=== PATIENT | female | born 1950 | race Caucasian/White ===

== ENCOUNTER 2016-07-20 23:18 | Inpatient (IN) | payer MEDICARE, OTHER ==
[~2016-07-20] VITALS: Ht 165.1 cm; Wt 90.5 kg
[~2016-07-20 23:18] MED LIST: ALPR0.5T8 PO; CETI-263 PO; GUAI400T57 PO; OMEP20CA11 PO; PHEN10TA32 PO; SERT20OR6 PO
[2016-07-20 23:35] VITALS: BP 147/85; PULSE 122; RESP 24; O2SAT 89
[2016-07-21] VITALS (26 sets, daily range): BP systolic 113–143; BP diastolic 36–77; PULSE 95–107; RESP 15–24; O2SAT 89–100
--- NOTE | 2016-07-21 00:33 | ED.REPORT ---
HPI-Abd Pain F 40 and Over Date of Service Jul 21, 2016 ED Provider: Lui Polanco DO This patient is a 65 year old female with a history of hiatal hernia and GERD who presents to the ED complaining of RUQ abdominal pain and bloating that started 4 days ago. Pt. complains of nausea and dry heaving but denies cough or diarrhea. Patient reports muscular pain of her abdomen and back due to the frequency and severity of her dry heaving. Patient also reports shallow breathing due to pain with deep breath. She also states that she hasn't been able to keep fluids/food down. Patient states that typically when she has symptoms of this character she eats yogurt and blueberries to calm down her stomach. However, this did not work this time. She denies cough, chest pain, fever, chills, shortness of breath, or history of lung disease. She is an everyday smoker. Nursing Notes Stated Complaint: ABDOMINAL PAIN Chief Complaint: Female Abdominal Pain Nursing Notes Reviewed: Yes (RUQ) Allergies: Coded Allergies: TAPE (Unverified Allergy, Severe, BLISTERS, 09/07/14) buspirone (Unverified Allergy, Severe, RESP. DIFFICULTY, 09/07/14) penicillinase (Unverified Allergy, Unknown, UNKNOWN, 07/20/16) Scheduled Cetirizine HCl (Cetirizine HCl) 10 Mg Tablet 10 MG PO HS Omeprazole (Omeprazole) 20 Mg Capsule.dr 20 MG PO BID Phenylephrine HCl (Suphedrine PE) 10 Mg Tablet 10 MG PO DAILY Sertraline HCl (Sertraline) 20 Mg/1 Ml Oral.conc 50 MG PO DAILY Scheduled PRN Alprazolam (Alprazolam) 0.5 Mg Tablet 0.5 MG PO TID PRN PRN For Anxiety Guaifenesin (Guaifenesin) 400 Mg Tablet 400 MG PO Q4H PRN PRN PRN General Time Seen by MD: 00:32 Chief Complaint Abdominal pain Hx Obtained From: Patient Sudden in Onset?: No Onset Occurred: 4 days ago Symptom Duration: Since onset Location: : Abdomen upper: RUQ Severity: Current: Mild Severity: Maximum: Mild Pertinent Negative: Pt denies other symptoms Recent Healthcare: No recent doctor visit, No recent hospitalization Similar Sx Previous: No Past Medical History Past Medical History Anxiety Nasal BCC cancer Reports: GERD, Mental illness Past Surgical History Nasal BCC cancer Smoking History Current Every Day Smoker Social History Alcohol Use: "Social" Other Social History: Good social support, Local resident Ambulatory Status Independent Review of Systems + Bloating, Unable to keep fluids and food down, shallow breathing Constitutional: Denies: Chills, Fever Respiratory: Denies: Non-productive cough, Shortness of breath Cardiovascular: Denies: Chest pain GI: Reports: Abdominal pain (RUQ), Nausea, Denies: Diarrhea, Vomiting (dry heaving) Musculoskeletal: Reports: Myalgia (Specifically front and back torso, muscular strain) Complete sys rev & neg: except as marked. Physical Exam Vital Signs Vital Signs (First) Date Time Temp Pulse Resp B/P Pulse Ox O2 Delivery O2 Flow Rate FiO2 07/20/16 23:35 36.4 122 24 147/85 89 Room Air 07/21/16 00:00 3 Initial VS: Reviewed, Vital signs abnormal Head / Eyes: Atraumatic, Normocephalic, PERRL ENT: Conjunctiva normal, No scleral icterus Neck: Supple, Full range of motion Extremities: Vascular intact, Neuro intact Skin: Warm, Dry, No cyanosis Neurologic: Alert, Oriented, Nonfocal Psychiatric: Mood/affect normal, Behavior normal, Normal thought content General/Constitutional: Awake, Alert Appearance / Presentation: Positive: Obese Respiratory / Chest: Atraumatic Wheezing / Retractions: Positive: Wheezing mild shallow breathing Cardiovascular: Heart rate NL, Regular rhythm, No murmurs Abdomen: Atraumatic, Soft Tenderness/Guarding/Rebound: Positive: Tender RUQ... (Severe) Bowel Sounds / Distention: Positive: Distention mild Back: Atraumatic, Full range of motion Interpretation & Diagnostics Interpretation & Diagnostics: NEGATIVE FOR INFLUENZA TYPE A AND B Lab Results Interpretation Result Diagram: 07/21/16 0047 07/21/16 0047 Test 07/21/16 00:47 07/21/16 02:07 White Blood Count 13.8th/mm3 (3.8-10.1) Red Blood Count 5.11mil/mm3 (3.90-5.20) Hemoglobin 16.4g/dL (12.0-15.6) Hematocrit 45.7% (35.0-46.0) Mean Corpuscular Volume 89.4fL (81-100) Mean Corpuscular Hemoglobin 32.1pg (27.0-35.0) Mean Corpuscular Hemoglobin Concent 35.9% (32.0-37.0) Red Cell Distribution Width 13.5% (12.3-15.4) Platelet Count 245bil/L (150-400) Neutrophils (%) (Auto) 81.6% (40-74) Lymphocytes (%) (Auto) 6.5% (14-46) Monocytes (%) (Auto) 11.5% (4-12) Eosinophils (%) (Auto) 0.1% (0-5) Basophils (%) (Auto) 0.1% (0-3) D-Dimer 2.7mg/L (<0.50) Sodium Level 129mEq/L (134-144) Potassium Level 4.3mEq/L (3.5-5.2) Chloride Level 91mEq/L (97-108) Carbon Dioxide Level 20mmol/L (18-29) Blood Urea Nitrogen 21mg/dL (8-27) Creatinine 0.82mg/dL (0.57-1.00) Estimat Glomerular Filtration Rate 100mL/min (>59) Glucose Level 100mg/dL (60-99) Lactic Acid Level 0.9mmol/L (0.4-2.0) Calcium Level 9.4mg/dL (8.5-10.1) Magnesium Level 1.9mg/dL (1.6-2.6) Total Bilirubin 0.9mg/dL (0.0-1.2) Aspartate Amino Transf (AST/SGOT) 18U/L (0-50) Alanine Aminotransferase (ALT/SGPT) 8U/L (0-32) Alkaline Phosphatase 90U/L (25-165) Troponin T 0.010ug/L (0.0-0.011) Total Protein 7.5g/dL (6.4-8.4) Albumin 3.5g/dL (3.4-5.0) Lipase 20U/L (13-60) Urine Color Red (YELLOW) Urine Appearance Cloudy (CLEAR,HAZY) Urine pH 6.0 (5.0-8.0) Urine Specific Higden 1.025 (1.003-1.035) Urine Protein 30mg/dL (NEG,TRACE) Urine Glucose (UA) Negativemg/dL (NEGATIVE) Urine Ketones Tracemg/dL (NEGATIVE) Urine Occult Blood Negative (NEGATIVE) Urine Nitrite Positive (NEGATIVE) Urine Bilirubin Moderate (NEGATIVE) Urine Ictotest Positive (Negative) Urine Urobilinogen 2.0mg/dL (NORMAL) Urine Leukocyte Esterase Trace (NEGATIVE) Urine RBC 3-10/hpf (0-2) Urine WBC 0-5/hpf (0-5) Urine Epithelial Cells Moderate/hpf (NONE-MOD) Urine Crystals None seen (NONE SEEN) Urine Bacteria Moderate/hpf (NONE-FEW) Urine Hyaline Casts Occasional/lpf (NONE) Urine Granular Casts None seen (NONE SEEN) Urine Waxy Casts None seen (NONE SEEN) Urine Red Blood Cell Casts None seen (NONE SEEN) Urine White Blood Cell Casts None seen (NONE SEEN) Urine Mucus Present (None Seen) Urine Trichomonas None seen (NONE SEEN) Urine Yeast None (NONE SEEN) Urine Culture Reflexed Indicated Lab Results Interpretation: Elevated white blood count, normal transaminases. ECG Interpretation ECG Interpretation: Sinus tachycardia with a rate of 105 Time: 12:52 Interpreted by: ED physician CT Chest Interpretation CONCLUSION: NO evidence of pulmonary embolism. Patchy interstitial thickening, nonspecific. Cannot rule out pneumonia. Small hiatal hernia. Radiologist: Seda Wilkinson MD 07/21/2016 - 3:49:29 AM PST Study type: CT pulm angiogram Interpretation / Wet Read by: Interpret - Radiologist CT Abd / Pelvis Interpretation CONCLUSION: Severely distended gallbladder, gallstones, ductal dilatation and surrounding inflammation, compatible with acute cholecystitis. Possible adjacent abscess in the subcapsular region. Hepatic flexure colitis. Radiologist: Seda Wilkinson MD 07/21/2016 - 3:54:42 AM PST Interpretation / Wet Read by: Interpret - Radiologist Re-Eval/Medical Decision Med Decision/Clinical Course 65-year-old female presents in extremis. She is having severe pleuritic pain and right upper quadrant pain. She has been sick for 4 days. On examination she was tachycardic, tachypneic and had significant pleuritic pain associated with right upper quadrant tenderness. She was fluid resuscitated initially and her pain was treated. Diagnostics were ordered. Pulmonary emboli and aortic dissection were ruled out. She does however have severe acute cholecystitis with possible purulent extension into the subcapsular liver region. There are gallstones seen on the CT scan. She was treated with broad-spectrum antibiotics and IV fluids. She has been hemodynamically stable. Garrick Palomo our general surgeon has accepted her to his service. I was then informed by the nursing extrusion supervisor that we could not admit anyone else to our hospital at this time. I spoke with the surgeon retail security professional at [facility]. His recommendations are that we discuss this with nila Bowers because he feels that Mrs. Gan is going to need a percutaneous drainage and this is not something that [facility] is capable of doing. He did state that if were unable to find any place else for her or if the interventional radiologist not feel at this is indicated to call him back. We will recheck out to local facilities with interventional radiology capabilities. In the meantime we will treat her in the emergency department. [address] Juan Green: Arrangements were finalized with the hospitalist and surgeon at [facility] for patient's transfer there. They graciously accepted the patient in transfer. We then received a call back from the nursing extrusion supervisor that no beds would be available till after 0930 hours. This delay was deemed unacceptable considering her illness. Her case was again discussed with the nursing extrusion supervisor and Dr. Steele, the current surgeon retail security professional. He will evaluate her to take her to the operating room. A bed will be made available to receive her postoperatively. Source of Hx: Old records Re-Evaluation/Progress #1: Time of Eval: 04:07 Patient Status: Condition improved Re-Evaluation/Progress Note: Informed the patient of the results of her CT scan and labs. She will need to be admitted to the hospital for cholecystectomy. Patient understands and agrees with this plan. All questions were addressed. Re-Evaluation/Progress #2: Time of Eval: 04:28 Re-Evaluation/Progress Note: There is no bed at this facility for a patient with this acuity. Patient will need to be transferred to another hospital. Patient understands and agrees with this plan. Consultation #1: Referral / Consult Name: Garrick Palomo MD Consulted With: Surgeon Call Returned at: 04:06 Claim Agent: Will see patient, Agrees with eval, Agrees with plan, Accepts admit Note: Spoke with Dr. Palomo, surgeon, about the patient's CT scan result. He agrees to accept her for admit. Consultation #2: Consulted With: Surgeon Call Returned at: 04:29 Claim Agent: Agrees with eval, Agrees with plan Note: Spoke with the on-call surgeon at [facility]. He believes that the patient will need an IR team for this procedure. Likely, the patient will need a percutaneous drain. He is unable to accept admit at this time. Suggests Naldo Bowers. Consultation #3: Call Returned at: 04:50 Note: Spoke with [facility] transfer center. Transfer may be possible. Surgeon will call back later. Consultation #4: Consulted With: Surgeon Call Returned at: 05:00 Note: Spoke with Surgeon at [facility]. Will push images and call back. Counseled Regarding: Diagnosis, Lab results, Need for admission, Need for transfer Discharge & Departure Shift Change Sign-Out Patient Care Transferred: Yes Discussed Complaint(s): Yes Laboratory Evaluation: Lab evaluation discussed Imaging Studies: Imaging discussed Awaiting placement at hospital Primary Impression: Acute cholecystitis Additional Impression: UTI (urinary tract infection) Urinary tract infection type: acute cystitis Hematuria presence: without hematuria Qualified Code: N30.00 - Acute cystitis without hematuria Disposition: Transfer, Acute Care Facility Discharge Condition All VS Reviewed: Yes Condition: Stable Referrals: Thanh Clinton MD (PCP) Care Transferred to: Dr. Green Care Transferred at: 05:00 Jessica Attestation Portions of this note were transcribed by Dyan Talbert and Anita Yin I, Dr. Polanco personally performed the history, physical exam and medical decision-making ; I reviewed and confirmed the accuracy of the information in the transcribed note. Signed by: Dyan Talbert and Jessica Holcomb, 07/21/2016 and 0456. copies to: Thanh Clinton MD, Todd P DO Jul 21, 2016 00:33 Ying Talbert [Dyan] Jul 21, 2016 00:41 Anita Yin Jul 21, 2016 04:09 Juan Green MD Jul 21, 2016 06:53
[2016-07-21] MEDS ORDERED: 0.9% Sodium Chloride 1,000 ML IV ONE ×2 (00:39→05:00)
[2016-07-21] MEDS ORDERED: Albuterol-Ipratropium 3 mL Inhalation Solution NEB ONE (00:40)
[2016-07-21] MEDS ORDERED: Ondansetron 2 mg/mL 2 mL Inj IVPUSH PRN ×2 (00:40→12:30)
[2016-07-21] MEDS: HYDROmorphone 0.5 mg/0.5 mL iSecure Syringe IVPUSH PRN ×4 (01:00→09:22)
[2016-07-21 01:15] LABS: BASOPHILS % (AUTO) 0.1 % (0-3); EOSINOPHILS % (AUTO) 0.1 % (0-5); MONOCYTES % (AUTO) 11.5 % (4-12); Mean Corpuscular Hemoglobin 32.1 pg (27.0-35.0); Mean Corpuscular Volume 89.4 fL (81-100); NEUTROPHILS % (AUTO) 81.6 % (40-74); Platelet Count 245 bil/L (150-400)
[2016-07-21 01:47] LABS: Magnesium 1.9 mg/dL (1.6-2.6)
[2016-07-21 02:23] LABS: APPEARANCE,URINE CLOUDY (CLEAR,HAZY); COLOR,URINE RED (YELLOW); OCCULT BLOOD,URINE NEGATIVE (NEGATIVE)
[2016-07-21 02:24] LABS: ICTOTEST,URINE POSITIVE (Negative)
[2016-07-21] MEDS ORDERED: cefTRIAXone Inj 2,000 MG in IV Premix 1 EACH IV ONE (02:35)
[2016-07-21] MEDS ORDERED: metroNIDAZOLE Inj 500 MG in IV Premix 1 EACH IV ONE (03:55)
[2016-07-21] MEDS ORDERED: 0.9% Sodium Chloride 1,000 ML IV SCH (04:40)
[2016-07-21] MEDS ORDERED: Lactated Ringer's 1,000 ML IV ONE ×2 (07:13→15:20)
--- NOTE | 2016-07-21 07:50 | DRSVH ---
PROCEDURE: CT ANGIO CHEST PULMONARY EMBOLISM ([id number]) INDICATIONS: pleuritic chest pain, elevated dimer, abd pain TECHNIQUE: After the administration of intravenous contrast, 2 mm thick sections acquired from the pulmonary api sameer to the posterior costophrenic angles. 3-dimensional maximum intensity projection (MIP) coronal a nd sagittal reformats were then acquired through the thorax. For radiation dose reduction, the follo wing was used: automated exposure control, adjustment of mA and/or kV according to patient size. COMPARISON: [facility], CT, CT ABD PELVIS W CON, 07/21/2016, 3:23. FINDINGS: Image quality: Excellent. Pulmonary arteries: Pulmonary arteries are normal in size, and demonstrate no intraluminal filling d efects to suggest central pulmonary embolism. Lungs and pleura: There is a minimal scattered appearance of linear opacities predominantly within th e right lung. There is a wedge-shaped area of opacity in the anterior right middle lobe measuring farrah roximately 15 mm. Mediastinum: Heart size is normal, without pericardial effusion. No mediastinal or hilar adenopathy . Thoracic aorta is normal in caliber and enhancement. Esophagus is normal in caliber, with small h iatal hernia. Bones and chest wall: No suspicious bony lesions. Ribs and thoracic spine appear intact throughout. Thyroid gland is unremarkable. No axillary or supraclavicular adenopathy. Abdomen: Within the right kidney, there is a complex focus of predominantly low attenuation within t he superior pole. No remote priors are available for comparison. Otherwise, visualized upper abdomina l solid organs appear normal in the early arterial phase of enhancement. IMPRESSION: 1. Scattered areas of opacity within the right lung with most prominent in the right middle lobe. Whi le this could represent atelectasis, focal or developing airspace disease such as pneumonia cannot be definitively excluded. 2. No evidence of pulmonary embolism. 3. Complex focus within the right kidney without remote priors available for comparison. It is incomp letely visualized. Please see CT abdomen pelvis report of 07/21/16 for further details. Dictated by: Annie Lennon M.D. on 07/21/2016 at 7:49 Approved by: Annie Lennon M.D. on 07/21/2016 at 7:49
--- NOTE | 2016-07-21 08:04 | DRSVH ---
PROCEDURE: CT ABDOMEN AND PELVIS WITH CONTRAST ([id number]) INDICATIONS: pleuritic chest pain, elevated dimer, abd pain TECHNIQUE: After the administration of intravenous contrast, 5 mm thick sections acquired from the diaphragm to the symphysis. 5 mm coronal and sagittal reformats were acquired. For radiation dose reduction, the following was used: automated exposure control, adjustment of mA and/or kV according to patient siz e. COMPARISON: None. FINDINGS: Image quality: Excellent. ABDOMEN: Lung bases: Scattered areas of opacity are present probably within the right lung as well as a wedge- shaped area opacity within the right middle lobe. Solid organs: Gallbladder is significantly distended. The wall is markedly thickened with enhancemen t and surrounding pericystic cholecystic fluid and inflammatory change. Areas of calcification are no yuriy along the inferior aspect. Mild perihepatic fluid is also noted. In addition, there is a subcapsu lar fluid collection measuring approximately 20 x 30 x 40 mm. Mild intrahepatic ductal dilation is pr esent. The liver is overall mildly enlarged with steatosis. The spleen is unremarkable. Pancreas enhances normally. No adrenal nodules. Kidneys demonstrate nor mal size, without hydronephrosis. There is a complex focus of low attenuation in the right kidney. Peritoneum and bowel: Small loops demonstrate mild appearance of fluid filled prominence. Nodes and vessels: No retroperitoneal or mesenteric adenopathy by size criteria. Aorta and inferior vena cava are normal in size. Miscellaneous: No ventral hernias. PELVIS: Genitourinary: Bladder wall thickness is normal. Miscellaneous: No inguinal hernias or adenopathy. Bones: No suspicious bony lesions. No vertebral body compression fractures. IMPRESSION: 1. Significantly distended gallbladder with stones, wall thickening surrounding inflammation and pote ntial adjacent perihepatic abscess as described above. Findings are overall most consistent with chol elithiasis and acute cholecystitis. 2. Mild appearance of fluid filled small bowel prominence, which could be sales representative girls' apparel of ileus or developing partial small bowel obstruction. 3. 2 cm complex focus in the right kidney, indeterminate. This could represent a complex cyst or po tentially neoplasm. Additional evaluation with CT renal protocol or ultrasound is recommended for ev aluation. Dictated by: Annie Lennon M.D. on 07/21/2016 at 8:02 Approved by: Annie Lennon M.D. on 07/21/2016 at 8:02
--- NOTE | 2016-07-21 09:15 | NUR ---
STATUS UPDATE C/O ABD PAIN 09/08, TOLERABLE. SBA TO WASH HANDS AND RETURN TO BED R/T PAIN MEDICATIONS. CALL LIGHT WITHIN REACH.
[2016-07-21] MEDS ORDERED: fentaNYL-PF 50 mCg/mL 2 mL Inj ONE (10:07)
[2016-07-21] MEDS ORDERED: Ampicillin-Sulbactam Inj 3,000 MG in 0.9% Sodium Chloride 100 ML IV SCH (10:25)
[2016-07-21] MEDS ORDERED: metroNIDAZOLE Inj 500 MG in IV Premix 1 EACH IV SCH (10:30)
[2016-07-21] MEDS ORDERED: levoFLOXacin Inj 500 MG in IV Premix 1 EACH IV SCH (10:30)
--- NOTE | 2016-07-21 11:21 | NUR ---
REPORT FOR OR REPORT GIVEN TO KATJA WOODS IN OR. WILL BE COMING TO TRANSPORT TO OR VIA STRETCHER. FAMILY IN ROOM. ALL VERBALIZED UNDERSTANDING. VSS, SL, 1LO2 NC 94%.
[2016-07-21] MEDS ORDERED: Lidocaine PF 1% 30 mL Inj ONE (11:30)
[2016-07-21] MEDS ORDERED: Rocuronium 10 mg/mL 5 mL Inj ONE (11:30)
[2016-07-21] MEDS ORDERED: Ondansetron 2 mg/mL 2 mL Inj ONE (11:30)
[2016-07-21] MEDS ORDERED: Glycopyrrolate 0.2 mg/mL 5 mL Inj ONE (11:30)
[2016-07-21] MEDS ORDERED: Neostigmine 1 mg/mL 5 mL Inj ONE (11:30)
[2016-07-21] MEDS ORDERED: Dexamethasone 4 mg/mL Inj ONE (11:30)
[2016-07-21] MEDS ORDERED: MetoCLOpramide 5 mg/mL 2 mL Inj ONE (11:30)
[2016-07-21] MEDS ORDERED: Phenylephrine/NS-PF 100 mCg/mL 5 mL Syringe IVPUSH ONE (11:30)
[2016-07-21] MEDS ORDERED: EPHEDrine/NS 5 mg/mL 5 mL Syringe ONE (11:30)
[2016-07-21] MEDS ORDERED: Phenylephrine 10,000 mCg/mL Inj ONE (11:30)
[2016-07-21] MEDS ORDERED: Propofol 10,000 mCg/mL 20 mL Inj ONE (11:30)
[2016-07-21] MEDS ORDERED: Succinylcholine Chloride 20 mg/mL 5 mL Inj ONE (11:30)
--- NOTE | 2016-07-21 11:37 | NUR ---
TO OR INDEPENDENTLY TRANSF[place]ED [place]. ALL BELONGINGS TAKEN BY FAMILY WHO ARE AT BEDSIDE.
--- NOTE | 2016-07-21 11:53 | HP ---
[address] [address] HISTORY AND PHYSICAL PATIENT: GILMA MATIAS : 1950 MR#: [id number] ADMIT: 07/20/2016 JOB ID: [id number] CHIEF COMPLAINT: A 65-year-old lady with cholecystitis, seen in consultation at the request of Lui Polanco DO and Garrick Palomo MD. HISTORY OF PRESENT ILLNESS: The patient is a 65-year-old lady who has had longstanding abdominal symptoms including abdominal pain and bloating, which she attributed to her hiatal hernia. She has been on omeprazole mcfp and when she has one of these episodes, she generally goes to a liquids and yogurt diet. When she started having a similar attack four days ago that was on last Sunday, she tried the same thing without any relief. She also developed nausea, vomiting and severe dry heaving, and abdominal pain. Because of the pain she also was having trouble taking a deep breath. She was worked up in the emergency department with a CT pulmonary angiogram and abdomen and pelvis, and we were consulted with a diagnosis of acute cholecystitis. Since being in the emergency department, she got some antibiotics and some pain medication, and she is feeling a little better. She has no known obvious fevers. OTHER MEDICAL PROBLEMS: 1. Depression and anxiety. 2. Basal cell cancer on the nose. 3. Gastroesophageal reflux disease. 4. Obesity. PRIOR OPERATIONS: 1. Total abdominal hysterectomy. 2. Excision of basal cell carcinoma from the nose. HOME MEDICATIONS: 1. Cetirizine. 2. Omeprazole. 3. Suphedrine. 4. Sertraline. 5. Alprazolam. 6. Guaifenesin. ALLERGIES: 1. TAPE. 2. BUSPIRONE. 3. PENICILLIN. SOCIAL HISTORY: She has been smoking for the last 30 years, though she has not smoked in the last week, she says, because she has not been feeling very good. She is here with her son and [id number]. REVIEW OF SYSTEMS: Twelve-point review of systems negative other than the pertinent positives noted in the history of present illness and other medical problems. FAMILY HISTORY: No known family history of cancer. INVESTIGATIONS: Labs from July 21, 2016, WBC 13.8, platelet count 245, hemoglobin 16.4. Glucose 100, creatinine 0.8. Lactic acid is 0.9. Albumin 3.5. Troponin 0.01. CT pulmonary angiogram, scattered areas of opacity in the right lung. No evidence of pulmonary embolism. A CT abdomen and pelvis on July 21, 2016, distended gallbladder with stones, wall thickening and surrounding inflammation, with possible adjacent perihepatic abscess, a 2 cm complex cystic structure in the right kidney, for which CT renal protocol or ultrasound was recommended. PHYSICAL EXAMINATION: A 65-year-old lady, in no acute distress. BMI 33.4, pulse 95, temperature 36.4, blood pressure 113/36, saturating 93% on 2 L nasal cannula. Eyes: Normal pupils, conjunctivae. Ears, nose, and throat: Normal external appearance. Neck: No adenopathy or jugular venous distention. Respiratory: Bilateral air entry. Cardiovascular: Regular rate and rhythm. Gastrointestinal: Focally tender to palpation in the right upper quadrant. Musculoskeletal: Normal strength in extremities. Neurologic: No gross deficits. Psych: Alert, appropriate. Skin: Normal. ASSESSMENT AND PLAN: Acute cholecystitis. Discussed pathophysiology and treatment rationale, and recommended laparoscopic cholecystectomy with intraoperative cholangiogram. Discussed risks of the operation including, but not limited to, bile leak, bleeding, infection, conversion to open operation. We will admit her to the hospital on antibiotics and take her to the operating room as soon as the OR is available.
[2016-07-21] MEDS ORDERED: Bupivacaine-MPF 0.5% 30 mL Inj INFILTRATE ONE (12:00)
[2016-07-21] MEDS ORDERED: metroNIDAZOLE Inj 500 MG in IV Premix 1 EACH IV STA (12:26)
[2016-07-21] MEDS ORDERED: Lactated Ringer's 500 ML IV PRN (12:29)
[2016-07-21] MEDS ORDERED: Lactated Ringer's 1,000 ML IV SCH (12:29)
--- NOTE | 2016-07-21 12:29 | PCM.HPANE ---
Patient Data Surgeon Admitting Provider: Attending Provider: Primary Care Physician:Thanh Clinton MD Other Provider: Reason for Visit Abdominal Pain Ht/WT & BMI Height (Feet): 5 Height (Inches): 5 Weight (Kilograms): 90.91 Body Mass Index Allergies Coded Allergies: TAPE (Unverified Allergy, Severe, BLISTERS, 09/07/14) buspirone (Unverified Allergy, Severe, RESP. DIFFICULTY, 09/07/14) penicillinase (Unverified Allergy, Unknown, UNKNOWN, 07/20/16) Past Anesthesia History Anesthesia History: Denies:: Anesthesia Reactions, Malignant Hyperthermia Diabetes History Hx Diabetes?: No MRSA MRSA: No Medications Hypertension Medication: No Home Meds Incl Beta Karolyn: No Reported Medications Phenylephrine HCl (Suphedrine PE)10 Mg [id number] Mg PO DAILY 09/07/14 Sertraline HCl (Sertraline)20 Mg/1 Ml Oral.conc50 Mg PO DAILY #1 BOTTLE Ref 0 09/07/14 Omeprazole 20 Mg Capsule.dr20 Mg PO BID 30 Days Ref 0 09/07/14 Guaifenesin 400 Mg [id number] Mg PO Q4H PRN PRN 30 Days 09/07/14 Cetirizine HCl 10 Mg Pkktev99 Mg PO HS #30 TABLET Ref 0 09/07/14 Alprazolam 0.5 Mg Tablet0.5 Mg PO TID PRN For Anxiety 30 Days Ref 0 09/07/14 History History of ENT Problems?: Yes HEENT History: Positive for:: Sinus Problem (SEASONAL ALLERGIES) Hx of Heart Problems?: No Cardiovascular History: Denies:: Congestive Heart Failure Hypertension Hx of Respiratory Problem?: No Respiratory History: Denies:: Tuberculosis Use of C-PAP Machine Hx Neurologic Problems?: No Hx of GI Problems?: Yes Gastrointestinal History: Positive for:: Gall Bladder Disease Gastroesphageal Reflux Hx of Problems?: No Female Hx: Denies:: Currently Skin History: Positive for:: History Skin Disorders? (RT NASAL BASAL CELL CA= CURRENT PROBLEM) Denies:: Pressure Ulcers Hx Musculoskeletal Problems?: Yes Musculoskeletal History: Positive for:: Musculoskeletal Trauma (S/P TENDON RPR LT RING FINGER (FINGERS VS SKILSAW)) Hx of Psycho/Social Problems?: Yes Psycho Social History: Positive for:: Anxiety (PTSD W/ PANIC ATTACKS) Hx Surgeries?: Yes (LT RING FINGER TENDON RPR,HYST,TONSILS,WISDOM TEETH EXTRACTIONS) Hx Any Other Health Problems?: Yes Other History: Positive for:: Cancer (NASAL BCC) Thyroid Disease Denies:: Endocrine Disease Hospitalization History Blood Transfusions: Positive for:: Blood Transfusions Denies:: Blood Transfuse Reaction Hx Diabetes: No Hx Alcohol Use: Yes (2-3 weekly)Hx Substance Use: No Smoking Status: Current Every Day Smoker Have You Smoked inLast 12 mo: Yes Stop/Bang ANJUM Risk Assessment: High Risk, =/>3 Yes ANJUM Category 2: Yes Risk Assessment Category Category 1A: Patient has history of documented sleep apnea, and HAS NOT received any narcotic, sedative or anesthesia administration during this stay. Category 1B: Patient has history of documented sleep apnea, and HAS received any narcotic , sedative or anesthesia administration during this stay Category 2: Patient has SUSPECTED Obstructive Sleep Apnea, and HAS received any narcotic , sedative or anesthesia administration during this stay. Category 3: Patient has SUSPECTED Obstructive Sleep Apnea and HAS NOT received narcotic, sedative or anesthesia administration during this stay. Category 4: Outpatient in Procedural Areas with known sleep apnea or who screen positive for High Risk via the STOP/BANG questionnaire. Exam Exam Vital Signs Vital Signs Date Time Temp Pulse Resp B/P Pulse Ox O2 Delivery O2 Flow Rate FiO2 07/21/16 11:09 102 16 139/58 94 Room Air 07/21/16 07:31 95 113/36 93 Nasal Cannula 2 07/21/16 06:13 98 24 122/58 95 Nasal Cannula 2 07/21/16 04:20 96 20 118/53 95 Nasal Cannula 2 General Appearance: Alert, Oriented X3, Cooperative HEENT/AIRWAY: MP 2, Neck Movement (OK), Mouth Opening (Wide) Lungs: Clear to Auscultation, Normal Air Movement Heart: Regular Rate/Rhythm, Normal S1, Normal S2 Meds/Labs/Diagnostics Admission Meds Current Medications Sodium Chloride (Normal Saline) 1,000 ml @ 0 mls/hr Q0M ONCE IV Last administered on 07/21/16 01:00; Start 07/21/16 at 00:39; Stop 07/21/16 at 00:41 ; Status DC Albuterol/ Ipratropium 3 ml 3 ml ONCE ONCE NEB Last administered on 07/21/16 01:17; Start 07/21/16 at 00:40; Stop 07/21/16 at 00:42; Status DC Ceftriaxone Sodium/Dextrose 2000 mg/Premix 50 ml @ 100 mls/hr ONCE ONCE IV Last administered on 07/21/16 03:08; Start 07/21/16 at 02:35; Stop 07/21/16 at 03:04; Status DC Metronidazole/ Sodium Chloride 500 mg/Premix 100 ml @ 200 mls/hr ONCE ONCE IV Last administered on 07/21/16 04:18; Start 07/21/16 at 03:55; Stop 07/21/16 at 04:24; Status DC Sodium Chloride 1,000 ml @ 0 mls/hr Q0M IV Last administered on 07/21/16 04: 58; Start 07/21/16 at 04:40; Stop 07/21/16 at 10:29; Status DC Sodium Chloride 1,000 ml @ 0 mls/hr Q0M ONCE IV Last administered on 05:02; Start 07/21/16 at 05:00; Stop 07/21/16 at 05:01; Status DC Lactated Ringer's (Lr) 1,000 ml @ ud STK-MED ONCE IV Last administered on 07/21 07:33; Start 07/21/16 at 07:13; Stop 07/21/16 at 07:14; Status DC Labs Test 07/21/16 00:47 07/21/16 02:07 White Blood Count 13.8th/mm3 (3.8-10.1) Red Blood Count 5.11mil/mm3 (3.90-5.20) Hemoglobin 16.4g/dL (12.0-15.6) Hematocrit 45.7% (35.0-46.0) Mean Corpuscular Volume 89.4fL (81-100) Mean Corpuscular Hemoglobin 32.1pg (27.0-35.0) Mean Corpuscular Hemoglobin Concent 35.9% (32.0-37.0) Red Cell Distribution Width 13.5% (12.3-15.4) Platelet Count 245bil/L (150-400) Neutrophils (%) (Auto) 81.6% (40-74) Lymphocytes (%) (Auto) 6.5% (14-46) Monocytes (%) (Auto) 11.5% (4-12) Eosinophils (%) (Auto) 0.1% (0-5) Basophils (%) (Auto) 0.1% (0-3) D-Dimer 2.7mg/L (<0.50) Sodium Level 129mEq/L (134-144) Potassium Level 4.3mEq/L (3.5-5.2) Chloride Level 91mEq/L (97-108) Carbon Dioxide Level 20mmol/L (18-29) Blood Urea Nitrogen 21mg/dL (8-27) Creatinine 0.82mg/dL (0.57-1.00) Estimat Glomerular Filtration Rate 100mL/min (>59) Glucose Level 100mg/dL (60-99) Lactic Acid Level 0.9mmol/L (0.4-2.0) Calcium Level 9.4mg/dL (8.5-10.1) Magnesium Level 1.9mg/dL (1.6-2.6) Total Bilirubin 0.9mg/dL (0.0-1.2) Aspartate Amino Transf (AST/SGOT) 18U/L (0-50) Alanine Aminotransferase (ALT/SGPT) 8U/L (0-32) Alkaline Phosphatase 90U/L (25-165) Troponin T 0.010ug/L (0.0-0.011) Total Protein 7.5g/dL (6.4-8.4) Albumin 3.5g/dL (3.4-5.0) Lipase 20U/L (13-60) Urine Color Red (YELLOW) Urine Appearance Cloudy (CLEAR,HAZY) Urine pH 6.0 (5.0-8.0) Urine Specific Castor 1.025 (1.003-1.035) Urine Protein 30mg/dL (NEG,TRACE) Urine Glucose (UA) Negativemg/dL (NEGATIVE) Urine Ketones Tracemg/dL (NEGATIVE) Urine Occult Blood Negative (NEGATIVE) Urine Nitrite Positive (NEGATIVE) Urine Bilirubin Moderate (NEGATIVE) Urine Ictotest Positive (Negative) Urine Urobilinogen 2.0mg/dL (NORMAL) Urine Leukocyte Esterase Trace (NEGATIVE) Urine RBC 3-10/hpf (0-2) Urine WBC 0-5/hpf (0-5) Urine Epithelial Cells Moderate/hpf (NONE-MOD) Urine Crystals None seen (NONE SEEN) Urine Bacteria Moderate/hpf (NONE-FEW) Urine Hyaline Casts Occasional/lpf (NONE) Urine Granular Casts None seen (NONE SEEN) Urine Waxy Casts None seen (NONE SEEN) Urine Red Blood Cell Casts None seen (NONE SEEN) Urine White Blood Cell Casts None seen (NONE SEEN) Urine Mucus Present (None Seen) Urine Trichomonas None seen (NONE SEEN) Urine Yeast None (NONE SEEN) Urine Culture Reflexed Indicated Plan Impression Patient chart reviewed, patient interviewed and anesthestic plan with risks, benefits, and alternatives discussed, and informed consent obtained. NPO Status: > 8 hours ASA Physical Status: ASA2 Mod Systemic Disease Anesthetic Plan: GA Bene/Risks/Altern/Consents: Yes HP Complete Prior to Induction: Yes Malik Mi MD Jul 21, 2016 11:56
[2016-07-21] MEDS ORDERED: fentaNYL-PF 50 mCg/mL 2 mL Inj IVPUSH PRN (12:30)
[2016-07-21] MEDS ORDERED: EPHEDrine Sulfate 50 mg/mL Inj IVPUSH PRN (12:30)
[2016-07-21] MEDS ORDERED: MetoCLOpramide 5 mg/mL 2 mL Inj IVPUSH PRN (12:30)
[2016-07-21] MEDS ORDERED: Atropine 0.4 mg/mL Inj IVPUSH PRN (12:30)
[2016-07-21] MEDS ORDERED: Labetalol 5 mg/mL 4 mL Inj IV PRN (12:30)
[2016-07-21] MEDS ORDERED: Phenylephrine 10,000 mCg/mL Inj IVPUSH PRN (12:30)
[2016-07-21] MEDS ORDERED: Albuterol 2.5 mg/3 mL Inhalation Solution NEB PRN (12:30)
[2016-07-21] MEDS ORDERED: HYDROmorphone 1 mg/mL Inj IVPUSH PRN (12:30)
[2016-07-21] MEDS ORDERED: Dexamethasone 4 mg/mL Inj IVPUSH PRN (12:30)
[2016-07-21] MEDS ORDERED: hydrALAZINE 20 mg/mL Inj IVPUSH PRN (12:30)
--- NOTE | 2016-07-21 16:56 | DRSVH ---
PROCEDURE: X-RAY OPERATIVE CHOLANGIOGRAM ([id number]) INDICATIONS: SURGERY COMPARISON: [facility], CT, CT ABD PELVIS W CON, 07/21/2016, 3:23. FINDINGS: Biliary ducts: The surgeon injected contrast into the biliary ducts after cannulation of the cystic duct stump. Visualized intra- and extrahepatic bile ducts are normal in caliber, without strictures. No intraluminal filling defects to suggest retained ductal stones or sludge. No evidence for iatro genic ductal injury. Duodenum: Contrast flows promptly through the sphincter of Oddi into the duodenum, which appears nor mal in caliber. IMPRESSION: Normal operative cholangiogram. Dictated by: Messi Prince M.D. on 07/21/2016 at 16:54 Approved by: Messi Prince M.D. on 07/21/2016 at 16:54
--- NOTE | 2016-07-21 17:10 | PCM.SURGPO ---
Immediate Operative Note Date of Surgery: Jul 21, 2016 Pre Operative Diagnosis Cholecystitis Post Operative Diagnosis Gangrenous cholecystitis with Abscess Procedure Laparoscopic Cholecystectomy with intraop cholangiogram Surgeon and Food Service Technician Surgeon: Marija Steele MD Assistants: Libra Ordaz, PAC Findings Gallbladder gangrenous with duodenum and colon adherent to it. Pus in RUQ and Gallbladder. Cholangiogram showed no injury or filling defects Complications There were no periprocedural complications identified. Surgical Specimen Removed: Yes Specimen sent to Pathology: Yes Surgical Specimen description: Gallbladder & stones Anesthetic Administered: GA Grafts, Implants: None Output, Estimated Blood Loss: 150 Blood Admin during surgery: No Attending Statement The digital sales assistant listed was medically necessary for the completion of the case Marija Steele MD Jul 21, 2016 17:10
--- NOTE | 2016-07-21 17:19 | PCM.ANEP1 ---
Post Anesthesia Phase 1 PACU Phase 1 Assessment Date of Service: Jul 21, 2016 Vital Signs Vital Signs Date Time Temp Pulse Resp B/P Pulse Ox O2 Delivery O2 Flow Rate FiO2 07/21/16 17:10 36.7 100 15 127/58 100 Simple Mask 6 07/21/16 11:09 102 16 139/58 94 Room Air Anesthetic Administered: GA Level of Alertness: Sleepy, easy to arouse WOODARD's with Equal Strength: Yes Pain: No Nausea or Vomiting: No Airway Device: Oralpharangeal Airway Oxygen Delivery: Simple Mask Lungs: Normal Air Movement Malik Mi MD Jul 21, 2016 17:19
--- NOTE | 2016-07-21 17:31 | PCM.ANEP2 ---
Post Anesthesia Evaluation ASA/CMS Post Anesthesia Date of Service: Jul 21, 2016 VS in Patient's Normal Range?: Yes Resp Stable; Airway Patent?: Yes CV Function & Hydration Stable: Yes Mental Status Recovered?: Yes Pain control Satisfactory?: Yes N/V Control Satisfactory?: Yes Malik Mi MD Jul 21, 2016 17:31
--- NOTE | 2016-07-21 18:41 | OP ---
[address] [address] OPERATIVE REPORT PATIENT: GILMA MATIAS : 1950 MR#: [id number] ADMIT: 07/21/2016 JOB ID: [id number] DATE OF SURGERY: 07/21/2016 PREOPERATIVE DIAGNOSIS(ES): Acute cholecystitis. POSTOPERATIVE DIAGNOSIS(ES): Acute gangrenous cholecystitis with pus in the right upper quadrant. PROCEDURE PERFORMED: Laparoscopic cholecystectomy with intraoperative cholangiogram. SURGEON: Marija Steele MD ASSISTED: Tonia Ordaz PA-C ESTIMATED BLOOD LOSS: 150 mL. COMPLICATIONS: None. CONDITION OF THE PATIENT: Stable. ANESTHESIA: General endotracheal with local. INDICATIONS: The patient is a 65-year-old lady who has had intermittent upper abdominal discomfort for years which she attributed to her gastroesophageal reflux disease. At this time when she presented to the emergency department she has had upper abdominal pain and nausea and vomiting for almost five days, and she was hypoxic in the emergency department, prompting a CT pulmonary angiogram, CT abdomen and pelvis, and blood work. It showed no evidence of PE but severe cholecystitis with surrounding inflammation of the colon with a possible abscess. After discussing the risks, benefits, and alternatives, she was brought to the operating room for laparoscopic cholecystectomy with cholangiogram. PROCEDURE DETAILS: She was placed in supine position. Underwent smooth induction of general anesthesia. Abdomen was prepped and draped in the usual sterile fashion. Surgical time-out was undertaken using safety checklist, and all were in agreement. I began by making a 10 mm supraumbilical incision and entered the abdomen using open Markus technique. After obtaining pneumoperitoneum I noticed intense inflammation in the right upper quadrant with pus, with the gallbladder covered with adhesions. I placed a 5 mm port in the epigastric region and suctioned the pus and sent it for culture. I then bluntly dissected the stuck omentum away from the gallbladder. The colon also appeared to be adherent to the gallbladder, but this was mobilized away without any obvious injury to the colon. After the gallbladder was reasonably from the duodenum and the colon and the omentum, I placed 2 additional ports in the right upper quadrant. The gallbladder was then retracted cephalad and to the right, and again pus was seen coming out of the gallbladder and this was suctioned free. Because of the intense inflammation of the gallbladder, it was hard for me to dissect the triangle of Calot and I tried dissecting the gallbladder away from the liver bed and near the fundus. I did get into the gallbladder in the process and suctioned all the pus out. I then tried to develop a plane between the gallbladder and the liver bed near the fundus and after proceeding well for some extent I did get into some bleeding from the liver surface. This prompted me to put a Ray-Albert into the abdominal cavity and we used a clamp to hold pressure while we continued with the dissection. I attempted to dissect the infundibulum of the gallbladder free from the liver bed and here again I did get into some bleeding, arterial bleeding likely from the cystic artery. We placed another additional sponge injury into the abdomen to hold pressure while we placed an additional 5 mm port in the right upper quadrant to continue the dissection. I was able to dissect the gallbladder away from the liver bed, narrowing down to the cystic duct. At this point I encircled the gallbladder with an Endoloop and performed a cystic ductotomy, and attempted to perform a cholangiogram but was not successful. After that I completely transected the duct there and saw a large occluding stone which I removed and after that I obtained a cholangiogram showing no filling defects and no injury to the biliary structures. I then proceeded to control the cystic duct stump with an Endoloop. I up-sized the epigastric port to a 12 mm and removed the gallbladder and stones through this incision. All the sponges were also removed at that time, after making sure we had good hemostasis. I was able to identify the bleeding from the cystic artery, which I controlled with a hemoclip. I fulgurated the rest of the mucosa at the top of the gallbladder that was left intact on the liver bed and put a Surgicel Fibrillar for hemostasis on the liver bed. The right upper quadrant was thoroughly irrigated and suctioned free of any residual fluid. No obvious stones were left behind. I then brought a #19 DOMINGUEZ drain through the lateralmost 5 mm port and placed it in the gallbladder fossa. This was secured with a drain stitch and after that the ports were removed and the umbilical port fascia and the epigastric port fascia was closed with 0-Vicryl suture. The skin was reapproximated with 4-0 Monocryl. Steri-Strips and a sterile dressing were applied. The patient was recovered from anesthesia and was taken to the recovery room in stable condition. Addendum for modifier 22: Because of the intense inflammation in the right upper quadrant from severe gangrenous cholecystitis the operative duration was more then doubled, adding to the difficulty of the case. Because of this, requesting increasing reimbursement.
--- NOTE | 2016-07-21 19:59 | NUR ---
Post Op Patient arrived to floor via [place] at 1955. Patient was A&OX3. Report given by Roseanne HIGHTOWER. Vitals stable. Patient on 4L O2. 4 Lap sites appeared clean dry and intact.
--- NOTE | 2016-07-21 20:41 | PCM.CHPMED ---
Subjective Primary Physician: Admitting Physician: Garrick Palomo MD Primary Care Physician: Thanh Clinton MD Attending Physician: Garrick Palomo MD Chief Complaint: Chief Complaint: Admitting general surgeon requests evaluation of hypoxemia postop HISTORY was OBTAINED FROM PATIENT / MEDITECH NOTES History of present illness 65-year-old female, presented with 4 day history of right upper quadrant pain and bloating associated dry heaving. No fevers no chills shortness of breath no prior history of coronary disease ongoing smoker. In the ER, IVF, rocephine, then to OR for cholecystitis s/p unasyn and lapascopic cholecystectomy of gangrenous gallbladder/stone. Post op hypoxia. throat is sore, thirsty. abdominal pain controlled. post op levaquin/flagyl Review of Systems - none of the following - F/C/sick contact / wt change/ ZHANG / lightheaded / dizziness / cough / cp / diarrhea / bleeding/bruising / leg swelling / change in voiding / yeast infections / rash intermittent GERD FAMILY HX gallstones medications Cetirizine HCl (Cetirizine HCl) 10 Mg Tablet 10 MG PO HS Omeprazole (Omeprazole) 20 Mg Capsule.dr 20 MG PO BID Phenylephrine HCl (Suphedrine PE) 10 Mg Tablet 10 MG PO DAILY Sertraline HCl (Sertraline) 20 Mg/1 Ml Oral.conc 50 MG PO DAILY Scheduled PRN Alprazolam (Alprazolam) 0.5 Mg Tablet 0.5 MG PO TID PRN PRN For Anxiety Guaifenesin (Guaifenesin) 400 Mg Tablet 400 MG PO Q4H PRN PRN PRN Past Medical History Hysterectomy Anxiety Nasal BCC cancer Hiatal hernia GERD social History Current Every Day Smoker Alcohol Use: "Social" PMH Allergies: Coded Allergies: TAPE (Unverified Allergy, Severe, BLISTERS, 09/07/14) buspirone (Unverified Allergy, Severe, RESP. DIFFICULTY, 09/07/14) penicillinase (Unverified Allergy, Unknown, UNKNOWN, 07/20/16) Social History Hx Alcohol Use: Yes (2-3 weekly)Hx Substance Use: No Smoking Status: Current Every Day Smoker Exam Vital Signs Vital Sign - Last Date Time Temp Pulse Resp B/P Pulse Ox O2 Delivery O2 Flow Rate FiO2 07/21/16 20:06 36.6 104 18 120/77 91 Nasal Cannula 4.00 Intake and Output 07/20/16 07/20/16 07/21/16 Cumulative From/Thru 15:00 23:00 07:00 07/20/16 23:35 - 07/21/16 05:47 Intake Total 3000 ml 3000 ml Balance 3000 ml 3000 ml Intake IV Total 3000 ml 3000 ml Lab and Diagnostics Labs Exam on admission 3L NC NAD A and O x 3 mood affect WNL NC/AT no icterus no injected eyes EOMI PERRL /erythematous pharyngeal tissue/ no oral lesions / hearing intact Supple neck CTAB equal chest rise / no accessory muscle use / speaks in full sentences / no rrw RRR S1 S2 / no mrg / 2+ radial pulses Soft nt mild distention hypoactive no hepatosplenomegaly No edema no cyanosis no ecchymosis of lower extremities No rash / no jaundice WOODARD ua nitrite positive bacteria PROCEDURE: CT ANGIO CHEST PULMONARY EMBOLISM ([id number]) INDICATIONS: pleuritic chest pain, elevated dimer, abd pain TECHNIQUE: After the administration of intravenous contrast, 2 mm thick sections acquired from the pulmonary apices to the posterior costophrenic angles. 3-dimensional maximum intensity projection (MIP) coronal and sagittal reformats were then acquired through the thorax. For radiation dose reduction, the following was used: automated exposure control, adjustment of mA and/or kV according to patient size. COMPARISON: [facility], CT, CT ABD PELVIS W CON, 07/21/2016, 3:23. FINDINGS: Image quality: Excellent. Pulmonary arteries: Pulmonary arteries are normal in size, and demonstrate no intraluminal filling defects to suggest central pulmonary embolism. Lungs and pleura: There is a minimal scattered appearance of linear opacities predominantly within the right lung. There is a wedge-shaped area of opacity in the anterior right middle lobe measuring approximately 15 mm. Mediastinum: Heart size is normal, without pericardial effusion. No mediastinal or hilar adenopathy. Thoracic aorta is normal in caliber and enhancement. Esophagus is normal in caliber, with small hiatal hernia. Bones and chest wall: No suspicious bony lesions. Ribs and thoracic spine appear intact throughout. Thyroid gland is unremarkable. No axillary or supraclavicular adenopathy. Abdomen: Within the right kidney, there is a complex focus of predominantly low attenuation within the superior pole. No remote priors are available for comparison. Otherwise, visualized upper abdominal solid organs appear normal in the early arterial phase of enhancement. IMPRESSION: 1. Scattered areas of opacity within the right lung with most prominent in the right middle lobe. While this could represent atelectasis, focal or developing airspace disease such as pneumonia cannot be definitively excluded. 2. No evidence of pulmonary embolism. 3. Complex focus within the right kidney without remote priors available for comparison. It is incompletely visualized. Please see CT abdomen pelvis report of 07/21/16 for further details. PROCEDURE: CT ABDOMEN AND PELVIS WITH CONTRAST ([id number]) INDICATIONS: pleuritic chest pain, elevated dimer, abd pain TECHNIQUE: After the administration of intravenous contrast, 5 mm thick sections acquired from the diaphragm to the symphysis. 5 mm coronal and sagittal reformats were acquired. For radiation dose reduction, the following was used: automated exposure control, adjustment of mA and/or kV according to patient size. COMPARISON: None. FINDINGS: Image quality: Excellent. ABDOMEN: Lung bases: Scattered areas of opacity are present probably within the right lung as well as a wedge-shaped area opacity within the right middle lobe. Solid organs: Gallbladder is significantly distended. The wall is markedly thickened with enhancement and surrounding pericystic cholecystic fluid and inflammatory change. Areas of calcification are noted along the inferior aspect. Mild perihepatic fluid is also noted. In addition, there is a subcapsular fluid collection measuring approximately 20 x 30 x 40 mm. Mild intrahepatic ductal dilation is present. The liver is overall mildly enlarged with steatosis. The spleen is unremarkable. Pancreas enhances normally. No adrenal nodules. Kidneys demonstrate normal size, without hydronephrosis. There is a complex focus of low attenuation in the right kidney. Peritoneum and bowel: Small loops demonstrate mild appearance of fluid filled prominence. Nodes and vessels: No retroperitoneal or mesenteric adenopathy by size criteria. Aorta and inferior vena cava are normal in size. Miscellaneous: No ventral hernias. PELVIS: Genitourinary: Bladder wall thickness is normal. Miscellaneous: No inguinal hernias or adenopathy. Bones: No suspicious bony lesions. No vertebral body compression fractures. IMPRESSION: 1. Significantly distended gallbladder with stones, wall thickening surrounding inflammation and potential adjacent perihepatic abscess as described above. Findings are overall most consistent with cholelithiasis and acute cholecystitis. 2. Mild appearance of fluid filled small bowel prominence, which could be insurance account representative of ileus or developing partial small bowel obstruction. 3. 2 cm complex focus in the right kidney, indeterminate. This could represent a complex cyst or potentially neoplasm. Additional evaluation with CT renal protocol or ultrasound is recommended for evaluation. Result Diagram: 07/21/16153707/21/16 0047 Assessment & Plan Assessment Active issues and reason for admission Hypoxia due to aspiration pneumonitis, contributory smoking history and atelectasis due to cholecystitis pain POD0 laparoscopic cholecystectomy -- Pending BNP, sputum culture, DuoNeb's 4 times a day, already on Levaquin and Flagyl -- Incentive spirometer Cholecystectomy due to cholecystitis/gallstones, associated leukocytosis -- Levaquin Flagyl, DOMINGUEZ drain per general surgeon --pain control per her surgeon Hyponatremia due to dehydration -- Status post normal saline IV fluid Chronic issues known prior to admission, present on admission Anxiety / smoker Hiatal hernia GERD --- Famotidine IV, narcotics, consider lorazepam, prn nicotine patch Diet per surgeon DVT prophylaxis scd ambulate Assessment and plan were discussed with patient family. Problems: Lillie Kurtz MD Jul 21, 2016 20:41 Diet per surgeon DVT prophylaxis scd ambulate Assessment and plan were discussed with patient family. Hysterectomy Anxiety Nasal BCC cancer Hiatal hernia GERD PMH Allergies: Coded Allergies: TAPE (Unverified Allergy, Severe, BLISTERS, 09/07/14) buspirone (Unverified Allergy, Severe, RESP. DIFFICULTY, 09/07/14) penicillinase (Unverified Allergy, Unknown, UNKNOWN, 07/20/16) Social History Hx Alcohol Use: Yes (2-3 weekly)Hx Substance Use: No Smoking Status: Current Every Day Smoker Exam Vital Signs Vital Sign - Last Date Time Temp Pulse Resp B/P Pulse Ox O2 Delivery O2 Flow Rate FiO2 07/21/16 20:06 36.6 104 18 120/77 91 Nasal Cannula 4.00 Intake and Output 07/20/16 07/20/16 07/21/16 Cumulative From/Thru 15:00 23:00 07:00 07/20/16 23:35 - 07/21/16 05:47 Intake Total 3000 ml 3000 ml Balance 3000 ml 3000 ml Intake IV Total 3000 ml 3000 ml Lab and Diagnostics Result Diagram: 07/21/16153707/21/167 Lillie Kurtz MD Jul 21, 2016 20:41
[2016-07-21] MEDS: Albuterol-Ipratropium 3 mL Inhalation Solution NEB SCH (21:00)
--- NOTE | 2016-07-21 21:02 | DRSVH ---
PROCEDURE: X-RAY CHEST ONE VIEW, PORTABLE ([id number]) INDICATIONS: hypoxia TECHNIQUE: One view of the chest was acquired. COMPARISON: None. FINDINGS: Surgical changes and devices: None. Lungs and pleura: Streaky opacities are present in the bilateral lung bases. No pleural effusion or p neumothorax. Mediastinum: Mediastinal contours appear normal. Heart size is normal. Bones and chest wall: No suspicious bony lesions. Overlying soft tissues appear unremarkable. IMPRESSION: Bilateral basilar radiopacities. Differential considerations include atelectasis, aspirat ion, infection. Short interval followup is recommended to ensure resolution of this finding and exclu de underlying pulmonary pathology. Dictated by: Gabi Chen M.D. on 07/21/2016 at 21:00 Approved by: Gabi Chen M.D. on 07/21/2016 at 21:00
[2016-07-21] MEDS ORDERED: 0.9% Sodium Chloride 250 ML ONE (21:18)
[2016-07-21] MEDS: Famotidine Inj 20 MG in IV Premix 1 EACH IV SCH (21:21)
[2016-07-21] MEDS ORDERED: Phenol 1.4% 177 mL Spray MUC_MEMBRM PRN (23:55)
[2016-07-22 00:11] VITALS: BP 126/77; PULSE 105; RESP 18; O2SAT 90
[2016-07-22] MEDS: metroNIDAZOLE Inj 500 MG in IV Premix 1 EACH IV SCH ×3 (00:30→16:48)
[2016-07-22] MEDS: HYDROmorphone 0.5 mg/0.5 mL iSecure Syringe IVPUSH PRN ×3 (00:41→20:44)
[2016-07-22 04:22] VITALS: BP 126/76; PULSE 88; RESP 18
[2016-07-22 07:03] LABS: BASOPHILS % (AUTO) 0.1 % (0-3); EOSINOPHILS % (AUTO) 0.1 % (0-5); MONOCYTES % (AUTO) 10.4 % (4-12); Mean Corpuscular Hemoglobin 31.5 pg (27.0-35.0); Mean Corpuscular Volume 92.7 fL (81-100); NEUTROPHILS % (AUTO) 84.7 % (40-74); Platelet Count 241 bil/L (150-400)
[2016-07-22] MEDS: Albuterol-Ipratropium 3 mL Inhalation Solution NEB SCH ×4 (08:24→21:00)
[2016-07-22 08:25] VITALS: PULSE 90; RESP 16; O2SAT 94
[2016-07-22] MEDS ORDERED: Influenza (Adult) Vaccine 0.5 mL Syringe IM ONE (08:30)
[2016-07-22] MEDS: Famotidine Inj 20 MG in IV Premix 1 EACH IV SCH ×2 (09:01→20:37)
[2016-07-22] MEDS: levoFLOXacin Inj 500 MG in IV Premix 1 EACH IV SCH (10:18)
[2016-07-22] MEDS: Polyethylene Glycol (PEG) 17 Gm Powder PO SCH (10:22)
--- NOTE | 2016-07-22 13:55 | PROG NOTE ---
[address] [address] PROGRESS NOTE PATIENT: GILMA MATIAS : 1950 MR#: [id number] ADMIT: 07/21/2016 JOB ID: [id number] DATE: 07/22/2016 SUBJECTIVE: Postop day one laparoscopic cholecystectomy for severe acute cholecystitis. She is afebrile, pulse is in the 80s and 90s, blood pressure is within normal limits. She tells me that she is feeling well though does not feel ready for discharge as she lives by herself. On examination, she is able to stand up with some assistance but is still a bit shaky. Her incisions are all intact. Her Javier-Nguyen drain which has put out only 30 cc since the surgery, does have a slight brown tinge that could be related to old blood or there could be some bile in it. Her abdomen is benign. Her white count is 12.6, hematocrit is 38 down from 42. Chemistries are normal except for mildly low sodium at 132. Her LFTs have risen a bit, at least the transaminases to 174 and 90 from normal preop. IMPRESSION AND PLAN: Postop day one laparoscopic cholecystectomy for severe acute cholecystitis. She remains on IV antibiotics per Dr. Steele and I agree with this plan. Her Javier-Nguyen drain will remain. We will encourage her to go on to oral pain medications. I will recheck labs tomorrow.
[2016-07-22 15:14] VITALS: BP 124/72; PULSE 97; RESP 18; O2SAT 95
--- NOTE | 2016-07-22 15:56 | PCM.PNMED ---
Subjective Date of Service Jul 22, 2016 Subjective Patient still is in pain from surgery, unable to take a deep inhalation Trying to use incentive spirometer, knows how it is important better oxygenation today 95% on 3LNC Exam Vital Signs Vital Sign - Last Date Time Temp Pulse Resp B/P Pulse Ox O2 Delivery O2 Flow Rate FiO2 07/22/16 15:14 36.7 97 18 124/72 95 Nasal Cannula 3.00 Intake and Output 07/21/16 07/21/16 07/22/16 Cumulative From/Thru 15:00 23:00 07:00 07/20/16 23:35 - 07/22/16 06:53 Intake Total 1200 ml 1000 ml 1202 ml 6402 ml Output Total 495 ml 430 ml 925 ml Balance 1200 ml 505 ml 772 ml 5477 ml Intake Oral 1000 ml 1000 ml IV Total 1200 ml 1000 ml 202 ml 5402 ml Output Urine Total 325 ml 400 ml 725 ml Drainage Total 20 ml 30 ml 50 ml Estimated Blood Loss 150 ml 150 ml Exam NAD, comfortably laying down on the bed no JVD, MMM, no LAD RRR, nl s1, s2 no mrg coarse BS, S,ND,tender s/p surgical site,normoactive BS+, DOMINGUEZ drain in place in RUQ, serosanguineous fluid noted warm, no edema, pulses 2/2 IVs and Medications Medications Reviewed: Medications were reviewed in detail Lab and Diagnostics Result Diagram: 07/22/16 0550 07/22/16 0550 Assessment & Plan Reason for consult #acute hypoxia s/p laparoscopic cholecystectomy, it seems it is more likely from limited ventilation from postsurgical pain, and atelectasis from anesthesia. Patient is clinically stable w/ abx for intraabdominal infection, without diuretics, oxygen requirement is decreasing, expected to resolve within 1-2days upon d/c. -Patient was strongly encouraged to use incentive spirometer as frequent as she can -Continue to supplement, target SpO2>95%, ambulate if possible -duonebs q4h standing for now, likely to switch to prn tomorrow -Acapella if noticing increasing sputum -infectious w/u ngtd, add viral PCR today also neg #Necrotizing cholecystitis s/p lap rosalinda, POA, -continue abx per surgery team, Levaquin Flagyl, DOMINGUEZ drain per general surgeon -please aggressively control pain, to prevent further atelectasis #Hyponatremia due to dehydration, POA, stable, dispo/dvt/diet per surgical team. Thank you for opportunity to follow this patient, hospitalist service will continue to follow VTE Mechanical Devices: Intermittant Pneumatic CD Time spent 35min Iam Lantigua MD Jul 22, 2016 15:56
--- NOTE | 2016-07-22 17:39 | NUR ---
Pain patient is alert and oriented X3. Able to make needs known. Dressing is clean dry and intact for 4 incisions. C/o pain once this shift to the abdomen, PRN pain medication given as ordered with effective results. Afebrile. family at the bed side. stable vital signs. no sign and symptoms of respiratory distress noted. 2L nasal cannula Oxygen r/t Hypoxia after surgery. no adverse effects noted r/t IV antibiotics. call light with in reach for safety. stable mood. continue to monitor for pain, Oxygen, and safety.
[2016-07-22 20:23] VITALS: BP 123/75; PULSE 109; RESP 20; O2SAT 85
[2016-07-22 21:00] VITALS: PULSE 83; RESP 16; O2SAT 93
[2016-07-23] VITALS (7 sets, daily range): BP systolic 117–142; BP diastolic 71–79; PULSE 86–102; RESP 16–20; O2SAT 87–99
[2016-07-23] MEDS: metroNIDAZOLE Inj 500 MG in IV Premix 1 EACH IV SCH ×3 (01:04→16:42)
[2016-07-23] MEDS: HYDROmorphone 0.5 mg/0.5 mL iSecure Syringe IVPUSH PRN (05:24)
[2016-07-23] MEDS: Albuterol-Ipratropium 3 mL Inhalation Solution NEB SCH (06:00)
[2016-07-23 06:33] LABS: BASOPHILS % (AUTO) 0.1 % (0-3); EOSINOPHILS % (AUTO) 1.1 % (0-5); MONOCYTES % (AUTO) 14.2 % (4-12); Mean Corpuscular Hemoglobin 31.8 pg (27.0-35.0); Mean Corpuscular Volume 94.8 fL (81-100); NEUTROPHILS % (AUTO) 72.4 % (40-74); Platelet Count 210 bil/L (150-400)
--- NOTE | 2016-07-23 06:44 | NUR ---
Pain Patient is up ambulating stand by assist to bathroom. Tolerating it well. Patient A&Ox3. Patient pain level seems to be well managed by 1 mg Dilaudid at random intervals sometimes exceeding 7 hours. Patient states she always gets nausea from PO Narcotics.
[2016-07-23] MEDS ORDERED: 0.9% Sodium Chloride 250 ML ONE (07:42)
[2016-07-23] MEDS: Famotidine Inj 20 MG in IV Premix 1 EACH IV SCH ×2 (07:48→20:34)
[2016-07-23] MEDS: Polyethylene Glycol (PEG) 17 Gm Powder PO SCH (09:29)
[2016-07-23] MEDS ORDERED: Magnesium Hydroxide 355 mL Oral Suspension PO ONE (09:35)
[2016-07-23] MEDS: levoFLOXacin Inj 500 MG in IV Premix 1 EACH IV SCH (10:11)
--- NOTE | 2016-07-23 11:00 | PROG NOTE ---
[address] [address] PROGRESS NOTE PATIENT: GILMA MATIAS : 1950 MR#: [id number] ADMIT: 07/21/2016 JOB ID: [id number] DATE: 07/23/2016 SUBJECTIVE: Postop day 2 laparoscopic cholecystectomy for acute gangrenous cholecystitis with right upper quadrant purulence. She is doing well, better pain control today. OBJECTIVE: Vital signs are within normal limits. Javier-Nguyen drainage was only 70 cc over the previous 24 hours, 30 cc since midnight. On examination, her abdomen is soft. Her incisions are healing. Her Javier-Nguyen drain has a little serosanguineous fluid, but does not look bilious at all to my eye. Her white count is down to 8.3, her hematocrit is 31.8. Her liver function tests continue to improve, with transaminases almost normalized. IMPRESSION AND PLAN: Doing quite well. She has another 24 hours of antibiotics ordered. I have encouraged her to make plans for probable discharge tomorrow with her family. She does live alone, but I have told her other than having a Javier-Nguyen drain in I would not anticipate her having very many nursing needs. She would prefer to be on p.o. Dilaudid rather than oxycodone due to historic experience with narcotics during previous surgery. She also says that she is passing gas, but has not had a bowel movement. I will switch her over to p.o. Dilaudid, order some milk of magnesia to supplement her other stool softeners.
--- NOTE | 2016-07-23 11:02 | PCM.PNMED ---
Subjective Date of Service Jul 23, 2016 Subjective Oxygen requirement significantly down with aggressive incentive spirometer use pt still felt SOB on minimal exertion pain is controlled Exam Vital Signs Vital Sign - Last Date Time Temp Pulse Resp B/P Pulse Ox O2 Delivery O2 Flow Rate FiO2 07/23/16 09:49 Supplement Oxygen 07/23/16 08:19 93 2.00 07/23/16 07:49 36.7 97 16 117/72 Intake and Output 07/22/16 07/22/16 07/23/16 Cumulative From/Thru 15:00 23:00 07:00 07/20/16 23:35 - 07/23/16 06:32 Intake Total 1000 ml 350 ml 7752 ml Output Total 540 ml 30 ml 1495 ml Balance 460 ml 320 ml 6257 ml Intake Oral 1000 ml 350 ml 2350 ml IV Total 5402 ml Output Urine Total 500 ml 1225 ml Drainage Total 40 ml 30 ml 120 ml Estimated Blood Loss 150 ml # Voids 2 2 # Bowel Movements 0 0 Exam NAD, comfortably laying down on the bed no JVD, MMM, no LAD RRR, nl s1, s2 no mrg CTAB, no w,c, poor inspiratory effort RUQ td from surgical scar, DOMINGUEZ drain in place warm, no edema, pulses 2/2 IVs and Medications Medications Reviewed: Medications were reviewed in detail Lab and Diagnostics Result Diagram: 07/23/1661007/23/16 0611 Assessment & Plan Reason for consult #acute hypoxia s/p laparoscopic cholecystectomy, it seems it is more likely from limited ventilation from postsurgical pain, and atelectasis from anesthesia. Patient is clinically stable w/ abx for intraabdominal infection, without diuretics, oxygen requirement is further decreasing, expected to resolve within 1-2days upon d/c. -Patient is using incentive spirometer, encouraged to keep using. -Continue to supplement, target SpO2>95%, ambulate if possible -duonebs q4h standing for now, will switch to prn today -Acapella if noticing increasing sputum -infectious w/u ngtd, add viral PCR today also neg #Necrotizing cholecystitis s/p lap rosalinda, POA, -continue abx per surgery team, Levaquin Flagyl, DOMINGUEZ drain per general surgeon -please aggressively control pain, to prevent further atelectasis #Hyponatremia due to dehydration, POA, stable, dispo/dvt/diet per surgical team. Thank you for opportunity to follow this patient, hospitalist service will continue to follow VTE Mechanical Devices: Intermittant Pneumatic CD Time spent 35min Iam Lantigua MD Jul 23, 2016 11:02
[2016-07-23] MEDS ORDERED: Albuterol-Ipratropium 3 mL Inhalation Solution NEB PRN (11:05)
--- NOTE | 2016-07-23 11:27 | NUR ---
RESPIRATORY/ACTIVITY Patient denies pain at this time. Ambulated in the hallway with SBA. Tolerated activity. PO2 on room air was in the low to mid 80's with ambulating. O2 placed back on and PO2 is back in the low to mid 90's on 2 LPM. Denies SOB with activity/at rest. Instructed and reiterated importance of IS use. She verbalized understanding and has been using her IS as instructed. Lung sounds are slightly decreased in the bases. Will continue to monitor.
--- NOTE | 2016-07-23 14:19 | NUR ---
POST-OP PROGRESS Patient continues to be on O2 at 2 LPM via NC. (Pls. refer to previous notes RE: O2 needs). Patient denies pain at this time but prefers PO Dilaudid for pain control. Tolerating liquids PO and her diet well. Denies nausea. No emesis noted. + Flatus. MOM given for complaints of constipation. No BM at this time. Patient ambulated in the hallway X 1 with SBA. Bandaid dressing in her abdomen is CDI. DOMINGUEZ intact and draining to serosanguineous output. Voiding without any problems.
--- NOTE | 2016-07-23 14:45 | NUR ---
Social Work: Initial Assessment Data & Assessment: EMR Reviewed. See Initial Assessment. Stonemason Apprentice met with patient at bedside to complete initial assessment, discuss discharge planning and SW role explained. Patient is alert ond orientedx 3. Patient's re-admit score is low at 2. Patient is a 65 y/o female that admitted due to Acute choli w/ adjacent hepatic subcapsul. Patient's NOK is Joshua Gan [phone]. Patient confirmed that her PCP is Dr. Thanh Clinton. Patient insurance is Medicare and C[employer] as Secondary insurance. Patient does not have LTC benefits. Patient does not have SNF or SNF history. Patient has access to a walker, WC and BSC. Patient lives in a one story home with ramp access. Patient is independent with ADL's at baseline. Patient is likely to discharge home with no needs when medically stable. SW will continue to follow. Patient will transport home via POV. Plan: Patient is likely to discharge home via POV. Patient does not have any SW needs at the current time. SW will continue to follow. Jim Villanueva LMSW, MARTA Addendum: 07/23/16 at 1456 by JIM CARTER Amended: Links added.
--- NOTE | 2016-07-23 19:38 | NUR ---
assumed care/activity Received report and assumed care of pt at 1500. Pt ambulated in o[place]a this afternoon, tolerated well. Remains on 2LO2, O2 sats 90%, continuous pulsox. Pt given 400mg po ibuprofen for c/o 4/10 pain, pt reports helping keep pain at tolerable level. Call light in reach. Care continues.
[2016-07-23] MEDS ORDERED: Magnesium Hydroxide 10 mL Oral Concentration PO SCH (21:00)
[2016-07-24] MEDS: metroNIDAZOLE Inj 500 MG in IV Premix 1 EACH IV SCH (01:58)
--- NOTE | 2016-07-24 03:25 | NUR ---
PAIN; up to bathroom with standby assist - had semi formed bm. Requested and given dilaudad 1mg po with relief of incisional pain.
[2016-07-24 04:23] VITALS: BP 130/77; PULSE 84; RESP 16; O2SAT 98
[2016-07-24 06:37] LABS: BASOPHILS % (AUTO) 0.4 % (0-3); EOSINOPHILS % (AUTO) 3.1 % (0-5); MONOCYTES % (AUTO) 15.1 % (4-12); Mean Corpuscular Hemoglobin 31.3 pg (27.0-35.0); Mean Corpuscular Volume 95.8 fL (81-100); NEUTROPHILS % (AUTO) 59.2 % (40-74); Platelet Count 244 bil/L (150-400)
[2016-07-24] MEDS ORDERED: NIC7 TOPICAL (07:21)
[2016-07-24] MEDS ORDERED: POLY17PO6 PO (07:21)
[2016-07-24] MEDS ORDERED: HYDR2TAB27 PO (07:21)
[2016-07-24] MEDS: Famotidine Inj 20 MG in IV Premix 1 EACH IV SCH ×2 (07:40→08:30)
[2016-07-24] MEDS: Polyethylene Glycol (PEG) 17 Gm Powder PO SCH (07:40)
[2016-07-24] MEDS: levoFLOXacin Inj 500 MG in IV Premix 1 EACH IV SCH ×2 (07:40→08:30)
[2016-07-24 08:05] VITALS: PULSE 79
[2016-07-24 08:23] VITALS: PULSE 80
[2016-07-24 08:30] VITALS: PULSE 103
[2016-07-24] MEDS ORDERED: HYDROmorphone 0.5 mg/0.5 mL iSecure Syringe IVPUSH PRN (08:32)
--- NOTE | 2016-07-24 09:32 | PCM.DISURG ---
Surgical Discharge Instruction Date of Service Jul 24, 2016 Dates of Hospitalization Date of Hospital Admission Jul 21, 2016 at 19:51 Providers Admitting Physician: Marija Steele MD Primary Care Physician: Thanh Clinton MD Attending Physician: Marija Steele MD Discharge Diagnosis Post Operative diagnosis Gangrenous cholecystitis with Abscess s/p Laparoscopic Cholecystectomy with Intraoperative Cholangiogram Diet Discharge Diet: No restrictions Activity Discharge Activity-General: No lifting >15 pounds for 2 weeks Dressing and Incisional Care Dressing Care: Allow Steri Stripes to fall off Hygiene: May shower Additional Instructions Discharge Instructions Record daily DOMINGUEZ output Follow Up Plan Follow Up Plan Follow up with Surgery PA 1 week postop for drain removal. Call your provider for: Fever, Chills, Shortness of breath, Increasing abdominal pain, Nausea, Vomiting, Wound redness, Increasing wound pain, Warmth to touch, Discharge @ incision, pus discharge Marija Steele MD Jul 24, 2016 09:32
--- NOTE | 2016-07-24 09:35 | PCM.PNSURG ---
Subjective Date of Service: Jul 24, 2016 Visit Information: Gangrenous Cholecystitis s/p Laproscopic Cholecystectomy with Intraop Cholangiogram 07/21/2016 Post-Op Day # 3 Date of Admission: Jul 21, 2016 at 19:51 Hospital Day # 4 Subjective: Feels well, Tolerating diet Objective Vital Sign- Last 8 Hours Date Time Temp Pulse Resp B/P Pulse Ox O2 Delivery O2 Flow Rate FiO2 07/24/16 08:35 Nasal Cannula 2.00 07/24/16 08:30 103 Room Air 07/24/16 08:23 80 Room Air 07/24/16 08:05 79 Nasal Cannula 2.00 07/24/16 04:23 36.3 84 16 130/77 98 Nasal Cannula 2.00 Intake and Output- Last 8 Hour 07/24/16 Cumulative From/Thru 07:00 07/20/16 23:35 - 07/24/16 05:53 Intake Total 350 ml 9746 ml Output Total 20 ml 1535 ml Balance 330 ml 8211 ml Intake Oral 200 ml 3586 ml IV Total 150 ml 6160 ml Output Urine Total 1225 ml Drainage Total 20 ml 160 ml Estimated Blood Loss 150 ml # Voids 2 8 # Bowel Movements 1 1 Abdomen: Soft SURGICAL WOUND : Wound Location/Description Incisions C/D/I Result Diagram: 07/24/16 0533 07/23/16 0611 Assessment & Plan Impression Doing well Problems: Plan DOMINGUEZ care teaching Setup home O2 if necessary Plan discharge F/U for DOMINGUEZ removal 1 week postop Marija Steele MD Jul 24, 2016 09:35
--- NOTE | 2016-07-24 12:19 | NUR ---
Discharge note- Instructed and observed patient o0
--- NOTE | 2016-07-24 12:20 | NUR ---
Discharge note- Instructed and observed patient with DOMINGUEZ drain care. Ordered pain med effective for incisional pain. Home O2 set up for discharge by RT. Tolerating diet and fluids well. Discharged to home with son and personal belongings.
--- NOTE | 2016-07-24 14:28 | PCM.DC.SUR ---
Discharge Summary Date of Service: Date of Hospital Admission: Jul 21, 2016 at 19:51 Date of Operation(s): 07/21/2016 Date of Discharge: Jul 24, 2016 at 11:40 Diagnosis at Time of Discharge Primary diagnosis: Acute gangrenous cholecystitis with pus in the right upper quadrant. Secondary diagnoses: 1. Depression and anxiety. 2. Basal cell cancer on the nose. 3. Gastroesophageal reflux disease. 4. Obesity. 5. Hiatal hernia 6. Daily cigarette smoker 30 years Problems: Operation Laparoscopic cholecystectomy with intraoperative cholangiogram Brief History and Physical: The patient is a 65-year-old lady who has had intermittent upper abdominal discomfort for years which she attributed to her gastroesophageal reflux disease. When she presented to the emergency department she had upper abdominal pain and nausea and vomiting for almost five days, and she was hypoxic in the emergency department, prompting a CT pulmonary angiogram, CT abdomen and pelvis, and blood work. It showed no evidence of PE but severe cholecystitis with surrounding inflammation of the colon with a possible abscess Consultants: Hospitalist Hospital Course: The patient was admitted and underwent the above-mentioned operation without complication. Postsurgically white blood cell count normalized by the second postsurgical day and transaminase trended down from the first to the second postsurgical day. DOMINGUEZ drain had minimal output that was never bilious and cleared significantly of brown sludge type material by the second postsurgical day. Diet was initiated on the second postsurgical day, by the third postsurgical day the patient was stable for discharge. On the day of discharge the patient had a bowel movement, was ambulating, tolerating a diet, and tolerating pain on oral Dilaudid. The patient was discharged home with Javier- Nguyen drain in place. Pathology: Pending Disposition: The patient was discharged to home with DOMINGUEZ in place on her third postsurgical day. Follow-up Plan: She will follow-up in the office with Dr. Steele for DOMINGUEZ removal in 1 week. Alprazolam (Alprazolam) 0.5 Mg Tablet 0.5 MG PO TID PRN PRN For Anxiety ( Reported) Cetirizine HCl (Cetirizine HCl) 10 Mg Tablet 10 MG PO HS (Reported) Guaifenesin (Guaifenesin) 400 Mg Tablet 400 MG PO Q4H PRN PRN PRN (Reported) Hydromorphone (Dilaudid) 2 Mg Tablet 1 MG PO Q4H PRN PRN For Pain Nicotine 7 mg/24 hr Patch (Nicotine 7 mg/24 hr Patch) 1 Each Patch.td24 1 PATCH TOPICAL DAILY PRN PRN urge Omeprazole (Omeprazole) 20 Mg Capsule.dr 20 MG PO BID (Reported) Phenylephrine HCl (Suphedrine PE) 10 Mg Tablet 10 MG PO DAILY (Reported) Polyethylene Glycol 3350 (Miralax) 17 Gm Powd.pack 17 GM PO DAILY Sertraline HCl (Sertraline) 20 Mg/1 Ml Oral.conc 50 MG PO DAILY (Reported) copies to: Thanh Clinton MD, Fred H PA-C Jul 24, 2016 14:28
--- NOTE | 2016-07-25 11:58 | PATH ---
SURGICAL PATHOLOGY Attending Physician:Marija Steele MD CASE STATUS: Signed Out PATIENT NAME: GILMA MATIAS PID: [id number] : 1950 DATE COLLECTED:07/21/2016 23:10 SPECIMEN: 1: Gallbladder 2: Gallbladder CLINICAL HISTORY: CHOLECYSTITIS 1). GALLBLADDER 2). GALLBLADDER FINAL DIAGNOSIS: 1-2. Gallbladder Submitted in Multiple Fragments as two separate specimens: Chronic cholecystitis with no evidence of cholelithiasis. ICD10: K80.7 GROSS DESCRIPTION: The specimens are received in formalin, labeled with the patient's name, and sublabeled as the following: (1) gallbladder; (2) gallbladder. (1) The specimen consists of multiple pieces of a gallbladder (7.5 x 4.5 x 3.5 cm in aggregate). The serosa is burris-brown and partially covered in adipose tissue and flaky friable exudate. The pieces cannot be oriented and the cystic duct cannot be identified. No lymph nodes are identified. The mucosa is brown-warren shiny and flat. No calculi are present. Section code: (1A, 1B) tissue, outside industrial sales representative. (2) The specimen consists of multiple pieces of a gallbladder (6.5 x 5 0.8 x 2.7 cm in aggregate). The serosa is burris-brown and partially covered in adipose tissue and flaky friable exudate. The pieces cannot be oriented and the cystic duct cannot be identified. No lymph nodes are identified. The mucosa is brown-warren shiny and flat. No calculi are present. Section code: (2A, 2B) tissue, outside industrial sales representative. 07/22/16 ICD-9 CODES: CPT CODES: 1: 21509 2: 70906 Electronically Signed Out Dex Prater MD [facility] [address], [place] [address] Technical component performed at [facility], [facility] [address], [place], [address]
== END 2016-07-24 11:50 | disposition home or self-care (01) | DRG 417 ==
LOC: SED 23:18 → SAS 07-21 11:35 → SED 07-21 11:51 → OSC 07-21 19:51
PROVIDERS: ADMIT Surgery; ATTEND Student in an Organized Health Care Education/Training Program
PROC: BF101ZZ Fluoroscopy of Bile Ducts using Low Osmolar Contrast (ICD-10-PCS; 2016-07-21)
PROC: 0FT44ZZ Resection of Gallbladder, Percutaneous Endoscopic Approach (ICD-10-PCS; principal; 2016-07-21 11:30)
DX: K81.0 Acute cholecystitis (principal); J69.0 Pneumonitis due to inhalation of food and vomit; E87.1 Hypo-osmolality and hyponatremia; R09.02 Hypoxemia; F17.200 Nicotine dependence, unspecified, uncomplicated; K21.9 Gastro-esophageal reflux disease without esophagitis